=== PATIENT | female | born 1975 | race Caucasian/White ===

== ENCOUNTER 2018-08-21 13:55 | Emergency (ER) | payer SELFPAY ==
[2018-08-21 13:55] VITALS: BP 131/72; PULSE 96; RESP 16; TEMP 36.4; O2SAT 100; BMI 30.3
[2018-08-21 14:14] VITALS: TEMP 36.4; O2SAT 96
--- NOTE | 2018-08-21 14:34 | CT_ITS ---
STUDY: CTA CHEST REASON FOR EXAM: Female, 42 years old. Short of breath 4 weeks RADIATION DOSAGE (If Supplied By Facility): CTDIvol = ( 16.71 ) mGy, DLP = ( 386.07 ) mGycm TECHNIQUE: The examination was performed with the intravenous administration of 100 IV Isovue 370. Post-processing of the angiographic images was performed, with multiplanar reformation and 3D reconstruction. Individualized dose optimization techniques were used for this CT. COMPARISON: None. FINDINGS: Normal enhancement of the main pulmonary artery and right and left pulmonary arteries. Normal enhancement of the bilateral peripheral pulmonary arteries. There is no demonstrated pulmonary embolism. Normal thoracic aorta and visualized great vessels. There is no demonstrated aortic dissection. Normal heart and pericardium. Normal mediastinum. Normal hilar regions. Normal visualized trachea and bronchi. The lungs are well expanded. There is minimal atelectasis within the dependent portion of the lungs. There is mild scarring in the lower lobes. No focal infiltration or pulmonary nodules.. Normal pleura. Normal chest wall structures. Dorsal spine demonstrates mild spondylosis Normal visualized upper abdomen. CT/CTA Chest W/WO Contrast IMPRESSION: Minor interstitial thickening at the lung bases and atelectasis within the dependent portion of the lungs.. No acute infiltration. No evidence for pulmonary embolus Electronically Signed: Geremias Yu MD at 16:25 EDT , Service support ,
[2018-08-21 15:19] LABS: Anion Gap 7 (5-15); BUN 10 mg/dL (7-18); BUN/Creat Ratio 17.1 RATIO (10-20); Calcium,Total 8.1 mg/dL (8.5-10.1); Chloride 108 mmol/L (98-107); Creatinine, Serum 0.58 mg/dL (0.55-1.02); EST Glomerular Filtration Rate 119 mL/min (>60); Est Glom Filt Rate - Afr Amer 144 mL/min (>60); Estimated Creatinine Clearance 121.62 ml/min; Glucose 88 mg/dL (74-106); Potassium 3.5 mmol/L (3.5-5.1); Sodium Level 139 mmol/L (136-145)
--- NOTE | 2018-08-21 15:29 | ED.VISSUMM ---
- ER Visit Summary Date of Service: 08/21/18 Chief Complaint: Shortness of breath History of Present Illness: The patient is a 42 F who is G3, P1 Ab1 at 29 weeks. She states for the past couple weeks she has had worsening shortness of breath. She notes dyspnea on exertion and increasing heart rate was stairclimbing. She went to her OB doctor today who was concerned about pulmonary embolism and sent her to the emergency department. She denies any vaginal bleeding or leakage of fluid. She is been feeling baby move. No fevers or cough. No prior DVT or PE. No known clotting disorders. Physical Examination: Afebrile vital signs are stable heart rate 93 at rest pulse ox 98% on room air with good waveform Gen: Well-nourished well-developed Head: Normocephalic atraumatic Eyes: Perrl EOMI ENT: TMs clear no rhinorrhea moist mucous membranes Neck: Supple no lymphadenopathy no JVD nontender CVS: Regular rate rhythm no murmurs normal S1-S2 Respiratory: No distress clear to auscultation bilaterally chest nontender Abdomen: Soft nontender nondistended normal bowel sounds enlarged uterus consistent with dates Back: Nontender Extremity: Nontender no edema Skin: Normal color no rash Neuro: alert orientated ?3 CN II-XII intact normal strength sensation reflexes Psych: Normal affect normal mood Test Results: BMP was obtained which was normal. CTA of the chest was obtained. This was negative for PE and dissection. No pleural effusions noted. No evidence of CHF. Emergency Department Course and Treatment: Patient has been hemodynamically. I suspect the dyspnea secondary to the . Encourage her to have fluids. I spoke with Dr. Champion who is on-call for NUCLEAR SECURITY OFFICER and notify her of the results. Impression: 1. Third trimester 2. Dyspnea This note was generated with [employer] dictation software. It may contain incorrect words, spelling, and punctuation that were not noted in review of the chart prior to signing ED Disposition - Plan for ED Patient: Disposition: Home or Assisted Living Instructions: Adapting to : Third Trimester Referrals: Macy Wetzel DO [Primary Care Provider] - Keep Hilary appointment Additional Instructions: Drink plenty fluids to stay hydrated. Rest when able.
[2018-08-21 17:07] VITALS: BP 109/74; PULSE 86; RESP 19; O2SAT 96
== END 2018-08-21 17:14 | disposition home or self-care (01) ==
PROVIDERS: Emergency Provider Emergency Medicine; Family Provider Obstetrics & Gynecology; PCP Obstetrics & Gynecology
DX: O26.893 Other specified pregnancy related conditions, third trimester (principal); R06.02 Shortness of breath; Z3A.29 29 weeks gestation of pregnancy
CPT/HCPCS: 71275; 80048; 99283; Q9967

== ENCOUNTER 2018-10-30 14:05 | Inpatient (IN) | payer SELFPAY ==
[2018-10-30] VITALS (12 sets, daily range): BP systolic 96–132; BP diastolic 60–85; PULSE 66–77; RESP 16–18; TEMP 36.1–36.8; O2SAT 97–100; BMI 31.4
[2018-10-30] MEDS: Lactated Ringers 1,000 ML 999 ML IV (15:10)
[2018-10-30 15:33] LABS: Absolute Lymphocyte Count 2.02 X10^3/uL (0.83-4.51); Absolute Neutrophil Count 6.7 X10^3/uL (2.0-7.7); Basophil# 0.02 X10^3/uL; Basophil% 0.2 % (0-1); Eosinophil# 0.05 X10^3/uL; Eosinophils% 0.5 % (0-5); Hematocrit 35.4 % (37-47); Hemoglobin 11.6 g/dL (12.0-15.0); Lymphocyte # 2.02 X10^3/ul (4.0); Lymphocyte % 21.4 % (19-41); Mean Corp Hgb Conc 32.8 g/dL (32-36); Mean Corpuscular Volume 91.5 fL (81-99); Mean Platelet Vol. 10.5 fl (6.2-12.0); Monocyte# 0.61 X10^3/uL; Monocyte% 6.5 % (0-10); NRBC Flagged by Analyzer 0 % (0-5); Neutrophil # 6.67 X10^3/uL (2.7-7.7); Neutrophil % 70.7 % (47-70); Platelet Count 134 K/mm3 (150-450); RBC Distribution Width CV 13.9 % (11.6-14.6); RBC Distribution Width SD 45.8 fl (35.1-43.9); Red Blood Count 3.87 M/mm3 (4.2-5.4); White Blood Count 9.4 K/mm3 (4.4-11.0)
--- NOTE | 2018-10-30 16:16 | HP.PCM_ITS ---
History and Physical Date of Admission: 10/30/18 Pre-Op History and Physical ? HPI: The patient is a 43 year old female presenting for pre-operative visit. She is scheduled for? and?bilateral salpingectomy, for?39 weeks , previous c/s, advanced maternal age, unfavorable cervix, AFV of 6.3 cm and sterilization request on?October 30, 2018. ??Procedure discussed along with risks, benefits and complications. ?Other alternatives discussed for management. Consent form signed??Yes.? PAST?MEDICAL?HISTORY PAST MEDICAL HISTORY Diagnosis Date ? Orthostatic proteinuria ? ? ? PAST?SURGICAL?HISTORY PAST SURGICAL HISTORY Procedure Laterality Date ? DELIVERY ONLY ? 01/2017 ? , low transverse ? ? CURRENT?MEDICATIONS Current Outpatient Medications Medication Sig Dispense Refill ? ferrous sulfate (IRON ORAL) Take by mouth. ? ? ? BABY ASPIRIN ORAL Take by mouth. ? ? ? no122/iron/folic acid ( MULTI ORAL) Take by mouth. ? ? ? citalopram (CELEXA) 20 mg tablet Take 20 mg by mouth once daily. ? ? ? levothyroxine (SYNTHROID) 50 mcg tablet Take 50 mcg by mouth daily before breakfast. ? ? ? No current facility-administered medications for this visit.? ? ALLERGIES:?Tetracycline ? PERSONAL HISTORY:? SOCIAL?HISTORY Social History ??Socioeconomic History ?Marital status: ?Spouse name: Abundio ?Number of children: 3 ?Years of education: Not on file ?Highest education level: Not on file ??Occupational History ?Occupation: Homemaker ??Social Needs ?Financial resource strain: Not on file ?Food insecurity: ?Worry: Not on file ?Inability: Not on file ?Transportation needs: ?Medical: Not on file ?Non-medical: Not on file ??Tobacco Use ?Smoking status: Never Smoker ?Smokeless tobacco: Never Used ??Substance and Sexual Activity ?Alcohol use: No ?Drug use: No ?Sexual activity: Yes ?Partners: Male ??Lifestyle ?Physical activity: ?Days per week: Not on file ?Minutes per session: Not on file ?Stress: Not on file ??Relationships ?Social connections: ?Talks on phone: Not on file ?Gets together: Not on file ?Attends confucianist service: Not on file ?Active member of club or organization: Not on file ?Attends meetings of clubs or organizations: Not on file ?Relationship status: Not on file ?Intimate partner violence: ?Fear of current or ex partner: Not on file ?Emotionally abused: Not on file ?Physically abused: Not on file ?Forced sexual activity: Not on file ??Other Topics ?Concerns: ?Not on file ??Social History Narrative ?Not on file ? FAMILY HISTORY:? FAMILY?HISTORY FAMILY HISTORY Problem Relation Age of Onset ? Breast Cancer Mother 53 ? Thyroid Mother ?Hypothyroid ? Diabetes Father ?Pre Diabetic ? Hyperlipidemia Sister ? ? Hypertension Sister ? ? Hypertension Brother ? ? Cancer Paternal Grandfather ?Leukemia ? REVIEW OF SYMPTOMS: GENERAL: denies fevers or chills ENDOCRINOLOGY: has not been on steroids Cardiology : denies palpitations or chest pain Respiratory: denies SOB or cough Hematology: denies history of prolonged bleeding or easy bruising or VTE Allergy: Denies history of personal or family history of allergy to anesthesia ? ? PHYSICAL EXAMINATION: ? VITALS:?Blood pressure 124/80, weight 201 lb (91.2 kg), last menstrual period 01/30/2018, not currently . ? GENERAL:??The patient is well nourished, well hydrated in no acute distress. ?, The patient is oriented to time, place, and person. NECK:?Supple. No lynphadenopathy, normal thyroid, no thyromegaly. LUNGS:?Clear to auscultation bilaterally. no wheezes, rhonchi or rales HEART:?Regular rate and rhythm, Normal heart sounds and No murmurs or gallops ABD- Soft, nontender, gravid ? IMPRESSION:?43-year-old 3 para 1011 at 39-0/7 weeks gestation with unfavorable cervix, history of previous section, amniotic fluid volume of 6.3 cm, and sterilization request ? PLAN:???The risks/benefits/alternatives and personal involved for the planned?c- section and?bilateral salpingectomy?were reviewed with the patient. Her questions were answered to her satisfaction and she desires to proceed. ?Consent was signed. ?I reviewed with her postop instructions and expectations. ?.[email or web address] ? ? ? I have reviewed and updated past medical and surgical history, medications and allergies? Maddy Champion M.D.
[2018-10-30] MEDS: Lactated Ringers 1,000 ML 150 ML IV (16:25)
[2018-10-30] MEDS: Sodium Citrate/Citric Acid 30 ML UDC PO (16:27)
[2018-10-30] MEDS: Cefazolin 2 GM in 0.9% Normal Saline 100 ML IV (17:06)
[2018-10-30] MEDS: Ondansetron 4 MG/2 ML Vial IV ×2 (17:17→21:41)
--- NOTE | 2018-10-30 18:00 | FALS_PTH ---
PATIENT: YURI HIGGINS LOC: [facility] U#:[id number] AGE/SX: 43/F ROOM: WP007 RE10/30/[address]: Dr. Maddy Champion MD : 1975 BED: 1 DIS: 11/01/2018 SPEC #: [id number] RECD: 10/30/18 20:04 STATUS: CHAVEZ REEmily #: [id number] KIMBERLY: 10/30/18 18:[address]: Maddy Champion DEPT: SURGICAL PATHOLOGY RECD BY: Velasquez Miranda ENTERED: 11/02/18 12:08 SP TYPE: FALL TUBES OTHR DR: Dr. Macy Wetzel, DO Tissues: Fallopian tube Procedures: Surgery Specimen Level II HEADER OPERATION: Tubal ligation PRE-OP DIAGNOSIS: Sterilization TISSUE SUBMITTED: Bilateral fallopian tubes MICROSCOPIC DIAGNOSIS Bilateral fallopian tubes, salpingectomy: Bilateral fallopian tubes with diffuse congestion and focal decidual changes. ADELINA:jazmin 11/03/18 MICROSCOPIC DESCRIPTION Slides are reviewed. GROSS DESCRIPTION Received is one container labeled with the patient's name and designated bilateral fallopian tubes. The specimen consists of bilateral fallopian tubes including fimbrial ends measuring 8 cm in length and up to 1 cm in diameter and 7 cm in length and up to 1 cm in diameter. The fallopian tubes are not identified as right or left. The serosal surface is congested. Sections reveal congested cut surfaces without any mass lesion. Vessel Scrapper Helper sections are submitted in two cassettes with each cassette containing one fallopian tube. / ADELINA:jazmin 11/02/18 TC:5 CPT: 03667 x2
--- NOTE | 2018-10-30 18:27 | PCM.OPRPT ---
Report of Operation Date of Procedure: 10/30/18 Pre-Operative Diagnosis: 39 WEEK , PREVIOUS C/S, STERILIZATION REQUET Post-Operative Diagnosis: same Surgery/Procedure Performed:: Repeat low transverse section via Pfannenstiel skin incision with bilateral salpingectomy Description of Surgical Findings:: Normal-appearing uterus tubes and ovaries, vigorous male , vertex, light meconium-stained fluid fountain pen turner: Marky Hedrick Type of Anesthesia:: Spinal Anesthesiologist: Ramon Alonso Special Medications: none Specimen's removed: placenta, bilateral tubes Drains: hnaey Estimated Blood Loss (mL): 1000 Description of Procedure: The patient was taken to the operating room. She was prepped and draped in the dorsal supine position with a leftward tilt. A Pfannenstiel skin incision was made approximately 2 cm above the symphysis pubis and carried through to underlying layer fascia with the scalpel. The fascia was incised incised in the midline and extended laterally with the Pelaez scissors. The fascia was dissected off the rectus muscles with blunt and sharp dissection. The rectus muscles were in the midline and the peritoneum was entered bluntly. The peritoneal incision was stretched and the bladder blade was placed. The uterine incision was made in a low transverse fashion with the scalpel and extended superiorly and inferiorly with blunt dissection. The amniotic membranes were ruptured bluntly and small amount of light meconium-stained amniotic fluid returned. The 's head was brought to the incision in the flexed position and delivered without difficulty. The remainder of the was delivered with gentle traction and fundal pressure in the standard fashion. The cord was clamped and cut as the was stimulated. Cord clamping was delayed. The was handed off to the waiting nursing staff. The placenta was delivered with fundal massage and gentle traction in the standard fashion. The uterus was exteriorized and cleared of all clots and debris. The cervix was dilated with a ring forcep. The uterine incision was closed with #1 Vicryl in a running locked fashion. A second layer of the same suture was used in an imbricating fashion. There is still some significant bleeding from a sinus along the right side of the incision. Several [id number] 0 Vicryl sutures were needed in this area to obtain hemostasis. Some powdered Surgicel was placed and pressure was held in the area was noted to be hemostatic. The right fallopian tube was identified and followed out to fimbriated end. The LigaSure was used to clamp, seal and transect the antimesenteric portion of the tube. The tube was then transected from the uterus with the LigaSure. Hemostasis was noted. The same procedure was performed on the contralateral side. The incision was examined and was found to be hemostatic. The uterus was placed back into the peritoneal cavity and hemostasis was again confirmed. The rectus muscles were examined and any bleeding was Bovie cauterized. The parietal peritoneum and rectus muscles were closed en bloc with an 0 Vicryl running suture. The powder Surgicel was placed in each layer. The rectus fascia was examined and any bleeding was Bovie cauterized and the rectus fascia was closed with #1 PDS suture in a running standard fashion. The subcutaneous tissue was examining and any bleeding was Bovie cauterized. The subcutaneous tissue was reapproximated with 3-0 Vicryl suture. The skin was closed in a subcuticular fashion by the JIG BORE OPERATOR with me present in the labor and delivery suite. I performed the remainder of the procedure with assistance. All sponge, lap, and needle counts were correct. The patient was taken to her room for recovery in a stable condition. Grafts/Implants Used: none - Complications none - Admit VTE Documentation VTE Present on Admission: No VTE Mechan Device Prophylaxis: SCD's VTE Pharm Prophylaxis ordered?: Yes
[2018-10-30] MEDS: Oxytocin 30 units/NS 500 ml 30 UNITS/500 ML IV.SOLN 167 UNITS IV (19:00)
--- NOTE | 2018-10-30 19:50 | NURSING ---
Dr. Champion used the Ligasure device for tubal ligation.
[2018-10-30 20:05] LABS: Pathology Specimen OB SEE PATHOLOGY REPORT
[2018-10-30] MEDS: Lactated Ringers 1,000 ML 100 ML IV (21:57)
[2018-10-31] VITALS (13 sets, daily range): BP systolic 95–123; BP diastolic 58–70; PULSE 69–88; RESP 16–17; TEMP 36.1–37.2; O2SAT 97–100
[2018-10-31] MEDS: Ketorolac 30 MG/ML Syringe IV ×2 (00:39→06:05)
[2018-10-31 06:34] LABS: Hematocrit 32.8 % (37-47); Hemoglobin 10.6 g/dL (12.0-15.0); Mean Corp Hgb Conc 32.3 g/dL (32-36); Mean Corpuscular Hgb 29.8 pg (27.0-32.0); Mean Corpuscular Volume 92.1 fL (81-99); Mean Platelet Vol. 10.4 fl (6.2-12.0); Platelet Count 124 K/mm3 (150-450); RBC Distribution Width CV 13.9 % (11.6-14.6); Red Blood Count 3.56 M/mm3 (4.2-5.4)
--- NOTE | 2018-10-31 09:47 | PCM.PN.OB ---
Subjective: Pain well controlled, average lochia. Up and ambulating. Catheter was just removed so has not urinated yet. No nausea or vomiting. - Physical Exam General: Alert, Cooperative, No apparent distress Abdomen: Soft, Distended - Moderately, softly, Tender - Appropriately, - - Fundus firm Extremities: Edema - 1+ Skin: Incision - Bandage is clean dry and intact Vital Signs Temp Pulse Resp BP Pulse Ox 98.0 F 78 17 95/60 99 10/31/18 08:00 10/31/18 08:00 10/31/18 08:00 10/31/18 08:00 10/31/18 08:00 Oxygen Delivery Method Room Air Weight: 91.081 kg Body Mass Index (BMI) 31.4 Intake and Output for Last 24 Hours 10/29/18 10/30/18 10/31/18 23:59 23:59 23:59 Intake Total 2367.65 / 2367.65 1486.67 / 1486.67 Output Total 525 / 525 700 / 700 Balance 1842.65 / 1842.65 786.67 / 786.67 Laboratory Tests Past 24 Hrs 10/30/18 10/30/18 10/31/18 15:10 15:10 06:12 WBC 9.4 9.0 RBC 3.87 L 3.56 L Hgb 11.6 L 10.6 L Hct 35.4 L 32.8 L MCV 91.5 92.1 MCH 30.0 29.8 MCHC 32.8 32.3 RDW Std Deviation 45.8 H 47.0 H RDW Coeff of Ad 13.9 13.9 Plt Count 134 L 124 L MPV 10.5 10.4 Immature Gran % (Auto) 0.700 Neut % (Auto) 70.7 H Lymph % (Auto) 21.4 Overton % (Auto) 6.5 Eos % (Auto) 0.5 Baso % (Auto) 0.2 Absolute Neuts (auto) 6.7 Absolute Lymphs (auto) 2.02 Nucleated RBC % 0 Blood Type A POSITIVE Antibody Screen NEGATIVE Medical Necessity - Tobacco Use Smoking Status: Never smoker Assessment/Plan Postoperative day #1 status post repeat and bilateral salpingectomy for sterilization. Patient is doing well, hemoglobin is appropriate for postop blood loss. Patient is working on breast-feeding. Routine care.
[2018-10-31] MEDS: Citalopram 20 MG Tablet PO (11:11)
[2018-10-31] MEDS: Docusate Sodium 100 MG Capsule PO (11:11)
[2018-10-31] MEDS: Senna/Docusate Sodium 1 Tablet PO ×2 (11:11→20:52)
[2018-10-31] MEDS: Prenatal Vits Tablet 1 TABLET PO (12:30)
[2018-10-31] MEDS: Ketorolac 10 MG Tablet PO ×2 (12:55→20:52)
[2018-10-31] MEDS: Levothyroxine 50 MCG Tablet PO (18:16)
[2018-10-31] MEDS: oxyCODONE 5 MG Tablet PO ×2 (18:46→23:38)
[2018-11-01 01:18] VITALS: BP 109/63; PULSE 86; RESP 16; TEMP 37
[2018-11-01] MEDS: Ketorolac 10 MG Tablet PO ×2 (04:54→13:41)
[2018-11-01] MEDS: Levothyroxine 50 MCG Tablet PO (06:29)
[2018-11-01] MEDS: oxyCODONE 5 MG Tablet PO (06:44)
[2018-11-01 08:00] VITALS: BP 99/51; PULSE 77; RESP 16; TEMP 36.7
--- NOTE | 2018-11-01 09:34 | PCM.PN.OB ---
Subjective: Pain controlled, average lochia. Tolerating regular diet, ambulating and urinating without difficulty. - Physical Exam General: Alert, Cooperative, No apparent distress Abdomen: Soft, Distended - Mildly, softly, Tender - Appropriately Skin: Incision - The bandage is clean dry and intact Vital Signs Temp Pulse Resp BP Pulse Ox 98.1 F 77 16 99/51 L 100 11/01/18 08:00 11/01/18 08:00 11/01/18 08:00 11/01/18 08:00 10/31/18 18:00 Oxygen Delivery Method Room Air Weight: 91.081 kg Body Mass Index (BMI) 31.4 Intake and Output for Last 24 Hours 10/30/18 10/31/18 11/01/18 23:59 23:59 23:59 Intake Total 2367.65 / 2367.65 1586.67 / 1586.67 Output Total 525 / 525 1650 / 1650 Balance 1842.65 / 1842.65 -63.33 / -63.33 Medical Necessity - Tobacco Use Smoking Status: Never smoker Assessment/Plan Postoperative day #2 status post repeat section bilateral salpingectomy for sterilization Patient is doing well, is breast-feeding and doing well. Likely home later today. Routine prescriptions and instructions.
[2018-11-01 09:41] VITALS: BP 113/71; PULSE 74; RESP 16; TEMP 36.7
--- NOTE | 2018-11-01 09:41 | DCINST_ITS ---
Discharge Diet: No Restrictions Discharge Activity: Return to Normal Activity, May Not Drive - for 2 weeks, May not drive while taking narcotic pain medications., May Shower, May Take a Tub Bath - in 7 days. May resume sexual activity in: 4-6 weeks Lifting Restrictions: 20 pounds Additional Activity Instructions:: Nothing in the vagina for 4-6 weeks. You may return to work/school in 6 weeks. Call your doctor if your incision/area has: Continuous Slow Oozing, Sudden Increased Bleeding, Increased Pain/ Swelling, Increased Redness, Foul Smelling Discharge Call your doctor if you observe: Fever of 101 or Higher, Using more than one pad per hour - for 2 hours Suture Line Care: Avoid Pulling/Pushing, Avoid Pinching/Bending Cleanse incision/area with: Keep Dressing Clean & Dry Additional Instructions: If you experience any of the following, contact your healthcare provider. * Bleeding that soaks a pad every hour for 2 hours * Fever 100.4 or higher * Unrelieved incision or abdominal pain * Swelling, redness, discharge or bleeding from your incision or episiotomy site * Your incision begins to separate * Problems urinating (including inability to urinate or burning while urinating). * Visual changes * Severe headache * Flu-like symptoms * Pain or redness in one of both of your breasts * Pain, warmth, tenderness or swelling in your legs, especially the calf area * Frequent nausea and vomiting * Symptoms of depression or anxiety If you experience any of the following, call 911 or go to the nearest Emergency Room. * Chest pain * Problems breathing * Seizure activity * Partial or complete paralysis of a body part, slurred speech, weakness or drooping of the face, or a sudden inability to walk or hold your balance Allergies/Adverse Reactions: Allergies tetracycline Adverse Reaction (Verified 08/21/18 13:57) Rash Medications to take at Discharge Citalopram [Celexa] 20 mg PO DAILY 01/14/17 Ferrous Gluconate [Iron] 650 mg PO DAILY 01/14/17 Vit,Calc76/Iron/Folic [Pnv 29-1 Tablet] 1 each PO DAILY 01/14/17 Citalopram [Celexa] 20 mg PO DAILY #30 tab 11/01/18 Levothyroxine Sodium 50 mcg PO DAILY@0600 #30 tab 11/01/18 Oxycodone [Oxyir] 5 mg PO Q6H PRN PRN 5 Days #12 tablet 11/01/18 The following prescriptions were given: Citalopram [Celexa] 20 mg PO DAILY #30 tab Transmission Status: Pending to [facility] Levothyroxine Sodium 50 mcg PO DAILY@0600 #30 tab Transmission Status: Pending to [facility] Oxycodone [Oxyir] 5 mg PO Q6H PRN PRN 5 Days #12 tablet PRN Reason: Severe Pain (6-11/19) Transmission Status: Sent to [facility] Follow-Up: Call to make an appointment with your doctor for an incision check in 1-2 weeks. You will also need a 6 week post- follow up appointment. Test results from this visit will be discussed in further detail at your follow- up appointment, if applicable. Please Follow Up With: Maddy Champion MD - Call to make an appointment for an incision check in 1-2 [phone] When: You will need a post check in 6 weeks.
--- NOTE | 2018-11-01 09:42 | PCM.DC.SUM ---
Discharge Date and Diagnosis Date of Admission: 10/30/18 Date of Discharge: 11/01/18 Hospital Course and Treatment Operations: - - Repeat low transverse section via Pfannenstiel skin incision with bilateral salpingectomy Summary of Care Provided: The patient is a 43 year old multigravida female with history of previous section was admitted at 39 weeks gestation for repeat section. She was diagnosed with low amniotic fluid, volume 6.3 cm, unfavorable cervix at term, advanced maternal age. Risk benefits and alternatives to repeat section versus expectant management were reviewed with the patient she desired to proceed with the section. In addition, she desired to proceed with bilateral salpingectomy and she understood this is permanent, irreversible risk of failure and regret. The section and bilateral salpingectomy were performed without difficulty on 10/30/2018. By postoperative day #2 she was ambulating, urinating tolerating regular diet and oral pain medication without difficulty. She was discharged home with routine instructions, she is to continue her home medications. She is to follow-up in the office in 1-2 in 6 weeks or as needed. [] - Physical Exam Vital Signs Temp Pulse Resp BP Pulse Ox 98.1 F 77 16 99/51 L 100 11/01/18 08:00 11/01/18 08:00 11/01/18 08:00 11/01/18 08:00 10/31/18 18:00 Oxygen Delivery Method Room Air Weight: 91.081 kg Body Mass Index (BMI) 31.4 Intake and Output for Last 24 Hours 10/30/18 10/31/18 11/01/18 23:59 23:59 23:59 Intake Total 2367.65 / 2367.65 1586.67 / 1586.67 Output Total 525 / 525 1650 / 1650 Balance 1842.65 / 1842.65 -63.33 / -63.33 Discharge Diet: No Restrictions Discharge Activity: Return to Normal Activity, May Not Drive - for 2 weeks, May not drive while taking narcotic pain medications., May Shower, May Take a Tub Bath - in 7 days. May resume sexual activity in: 4-6 weeks Additional Activity Instructions:: Nothing in the vagina for 4-6 weeks. You may return to work/school in 6 weeks. Call your doctor if your incision/area has: Continuous Slow Oozing, Sudden Increased Bleeding, Increased Pain/ Swelling, Increased Redness, Foul Smelling Discharge Call your doctor if you observe: Fever of 101 or Higher, Using more than one pad per hour - for 2 hours Suture Line Care: Avoid Pulling/Pushing, Avoid Pinching/Bending Cleanse incision/area with: Keep Dressing Clean & Dry Home Medications: Medications to take at Discharge Citalopram [Celexa] 20 mg PO DAILY 01/14/17 Ferrous Gluconate [Iron] 650 mg PO DAILY 01/14/17 Vit,Calc76/Iron/Folic [Pnv 29-1 Tablet] 1 each PO DAILY 01/14/17 Citalopram [Celexa] 20 mg PO DAILY #30 tab 11/01/18 Levothyroxine Sodium 50 mcg PO DAILY@0600 #30 tab 11/01/18 Oxycodone [Oxyir] 5 mg PO Q6H PRN PRN 5 Days #12 tablet 11/01/18 Following Prescrptions Were Given to Patient: Citalopram [Celexa] 20 mg PO DAILY #30 tab [facility] Levothyroxine Sodium 50 mcg PO DAILY@0600 #30 tab Transmission Status: [facility] Oxycodone [Oxyir] 5 mg PO Q6H PRN PRN 5 Days #12 tablet PRN Reason: Severe Pain (6-11/19) Transmission Status[facility] Primary Care Physician: Macy Wetzel DO [Primary Care Provider] - Please Follow Up With: Maddy Champion MD - Call to make an appointment for an incision check in 1-2 [phone] When: You will need a post check in 6 weeks. Medical Necessity - Tobacco Use Smoking Status: Never smoker Meaningful Use Info Meaningful Use Diagnoses (Choose all that apply): None applicable
[2018-11-01] MEDS: Senna/Docusate Sodium 1 Tablet PO ×3 (11:01)
[2018-11-01] MEDS: Prenatal Vits Tablet 1 TABLET PO (11:01)
[2018-11-01] MEDS: Citalopram 20 MG Tablet PO (11:01)
== END 2018-11-01 14:05 | disposition home or self-care (01) | DRG 785 ==
PROVIDERS: Admitting Provider Obstetrics & Gynecology; Family Provider Obstetrics & Gynecology; PCP Obstetrics & Gynecology; Referring Provider Obstetrics & Gynecology; Visit Provider Obstetrics & Gynecology
PROC: 10D00Z1 Extraction of Products of Conception, Low, Open Approach (ICD-10-PCS; CPT 59514; principal; 2018-10-30 16:15)
DX: O34.211 Maternal care for low transverse scar from previous cesarean delivery (principal); O77.0 Labor and delivery complicated by meconium in amniotic fluid; Z30.2 Encounter for sterilization; O99.284 Endocrine, nutritional and metabolic diseases complicating childbirth; E03.9 Hypothyroidism, unspecified; O99.344 Other mental disorders complicating childbirth; F32.9 Major depressive disorder, single episode, unspecified; Z79.899 Other long term (current) drug therapy; Z3A.39 39 weeks gestation of pregnancy; Z37.0 Single live birth
CPT/HCPCS: 85025; 85027; 86850; 86900; 86901; 88302; 99218; J7120; G0378; J2405

== ENCOUNTER → 2018-12-08 16:45 | Outpatient (CLI) | payer MEDICAID, SELFPAY ==
[2018-10-30 15:35] VITALS: BMI 31.4
[2018-12-08 17:14] LABS: Protein, Urine (Random) 36.5 mg/dL (<11.9); Protein:Creat Ratio 551 mg/g CRE (0-200)
[2018-12-08 17:23] LABS: Albumin, Serum 3.4 g/dL (3.2-5.0); BUN 15 mg/dL (7-18); BUN/Creat Ratio 16.5 RATIO (10-20); Calcium,Total 8.3 mg/dL (8.5-10.1); Chloride 107 mmol/L (98-107); Creatinine, Serum 0.91 mg/dL (0.55-1.02); EST Glomerular Filtration Rate 71 mL/min (>60); Est Glom Filt Rate - Afr Amer 86 mL/min (>60); Glucose 79 mg/dL (74-106); Phosphorus 3.5 mg/dL (2.5-4.9); Potassium 3.9 mmol/L (3.5-5.1); Sodium Level 140 mmol/L (136-145)
== END ==
PROVIDERS: Family Provider Obstetrics & Gynecology; PCP Obstetrics & Gynecology; Referring Provider Internal Medicine Nephrology; Visit Provider Internal Medicine Nephrology
DX: R80.9 Proteinuria, unspecified (principal)
CPT/HCPCS: 36415; 80069; 82570; 84156

== ENCOUNTER → 2020-03-09 11:26 | Outpatient (CLI) | payer SELFPAY ==
[2018-10-30 15:35] VITALS: BMI 31.4
--- NOTE | 2020-03-09 11:30 | US_ITS ---
STUDY: ULTRASOUND OF THE FEMALE PELVIS - COMPLETE REASON FOR EXAM: Female, 44 years old. Pelvic pain LMP: 02/17/2020 TECHNIQUE: Transabdominal and Transvaginal TECHNICAL QUALITY: Adequate. COMPARISON: None. FINDINGS: The uterus is anteverted and is in a midline position. The uterus measures 8.8 cm x 5.7 cm x 4.9 cm. There is a Nabothian cyst of the cervix. The endometrium measures 7.9 mm in thickness, and is hyperechoic. There is no demonstrated endometrial mass. Heterogeneous appearance of the uterus. I.U.D. - The patient does not have an I.U.D. The right ovary is visualized. The right ovary measures 3.2 cm x 1.6 cm x 1.5 cm. There is no right ovarian cyst or ovarian mass. There is no visualized right adnexal mass or complex lesion. There is normal arterial and normal venous vascularity. The left ovary is visualized. The left ovary measures 4.3 cm x 2.2 cm x 2.6 cm. 2.2 cm x 2 cm x 1.8 cm cyst in the left ovary. There is no visualized left adnexal mass or complex lesion. There is normal arterial and normal venous vascularity. There is no fluid in the cul-de-sac. The pre void volume of the bladder was 952 ml. Polycystic ovary disease: No. US/Pelvic (Non ) IMPRESSION: 2.2 cm x 2 cm x 1.8 cm cyst in the left ovary. Heterogeneous appearance of the myometrium. Electronically Signed: Leo Posada MD at 13:33 EST , Service support ,
--- NOTE | 2020-03-09 11:31 | US_ITS ---
STUDY: ULTRASOUND OF THE FEMALE PELVIS - COMPLETE REASON FOR EXAM: Female, 44 years old. Pelvic pain LMP: 02/17/2020 TECHNIQUE: Transabdominal and Transvaginal TECHNICAL QUALITY: Adequate. COMPARISON: None. FINDINGS: The uterus is anteverted and is in a midline position. The uterus measures 8.8 cm x 5.7 cm x 4.9 cm. There is a Nabothian cyst of the cervix. The endometrium measures 7.9 mm in thickness, and is hyperechoic. There is no demonstrated endometrial mass. Heterogeneous appearance of the uterus. I.U.D. - The patient does not have an I.U.D. The right ovary is visualized. The right ovary measures 3.2 cm x 1.6 cm x 1.5 cm. There is no right ovarian cyst or ovarian mass. There is no visualized right adnexal mass or complex lesion. There is normal arterial and normal venous vascularity. The left ovary is visualized. The left ovary measures 4.3 cm x 2.2 cm x 2.6 cm. 2.2 cm x 2 cm x 1.8 cm cyst in the left ovary. There is no visualized left adnexal mass or complex lesion. There is normal arterial and normal venous vascularity. There is no fluid in the cul-de-sac. The pre void volume of the bladder was 952 ml. Polycystic ovary disease: No. US/Transvaginal Non- IMPRESSION: 2.2 cm x 2 cm x 1.8 cm cyst in the left ovary. Heterogeneous appearance of the myometrium. Electronically Signed: Leo Posada MD at 13:33 EST , Service support ,
== END ==
PROVIDERS: PCP Physician Assistant; Referring Provider Physician Assistant; Visit Provider Physician Assistant
DX: R19.01 Right upper quadrant abdominal swelling, mass and lump (principal)
CPT/HCPCS: 76830; 76856

== ENCOUNTER → 2021-10-18 | Outpatient (CLI) | payer SELFPAY ==
--- NOTE | 2021-10-18 10:15 | BI_ITS ---
MAMMOGRAPHY - BILATERAL SCREENING REASON FOR EXAM: Female, 46 years old. Routine annual screening examination. PERTINENT HISTORY: Mother with breast cancer. TECHNIQUE: Digital bilateral breast delmi (3D mammographic acquisition) in the CC and MLO projections. 2-D mediolateral oblique (MLO) and craniocaudad (CC) views of both breasts were obtained. CAD: Full Field Digital Mammography with Computer Added Detection was performed. COMPARISON: Comparison is made with prior abdomen examination of 03/23/2019. FINDINGS: Breast Composition: The breasts are heterogeneously dense, which may obscure small masses. Findings suggestive of a architectural distortion in the slightly upper lateral aspect of the left breast. The patient will be recalled for additional views including 90 degree lateral and compression spot views. Stable small benign-appearing bilateral axillary lymph nodes. No other significant abnormalities are identified. BI/SCRN MAMM (CAD)W/DELMI BILAT IMPRESSION: Findings suggestive of architectural distortion in the slightly upper lateral aspect of the left breast. The patient will be recalled for additional views. Recall Side: Left Breast ASSESSMENT CATEGORY: BIRADS Category 0: Incomplete. Need additional imaging evaluation. A letter regarding these results will be sent to the patient by the facility within 30 days. Approximately 10% of breast cancers are not detected by mammography. A normal mammogram should not delay biopsy of a clinically suspicious abnormality. [id number] Electronically Signed: Leo Posada MD at 11:01 EDT ,
== END | disposition home or self-care (01) ==
PROVIDERS: PCP Physician Assistant; Visit Provider Physician Assistant
DX: Z12.31 Encounter for screening mammogram for malignant neoplasm of breast (principal); Z80.3 Family history of malignant neoplasm of breast
CPT/HCPCS: 77063; 77067

== ENCOUNTER → 2021-10-23 | Outpatient (CLI) | payer SELFPAY ==
--- NOTE | 2021-10-23 08:59 | US_ITS ---
STUDY: ULTRASOUND BREAST - LEFT REASON FOR EXAM: Female, 46 years old. Abnormal screening mammogram. TECHNIQUE: Axial and longitudinal images of the LEFT breast were performed with a high resolution ultrasound transducer. # OF IMAGES: 41 COMPARISON: Comparison is made with prior mammogram done earlier in the day as well as prior mammogram dated 10/18/2021. FINDINGS: LEFT Breast: The upper outer quadrant of the breast was examined with ultrasound. Focal increased glandular tissue at the 3 o''clock position of the breast. No focal lesion is seen. US/Breast Limited Unilateral IMPRESSION: No significant abnormality is seen. Routine annual mammographic follow-up recommended. ASSESSMENT CATEGORY: BIRADS Category 2: Benign. A letter regarding these results will be sent to the patient by the facility within 30 days. Electronically Signed: Leo Posada MD at 10:25 EDT ,
--- NOTE | 2021-10-23 08:59 | BI_ITS ---
MAMMOGRAPHY - UNILATERAL DIAGNOSTIC: LEFT BREAST REASON FOR EXAM: Female, 46 years old. Abnormal screening mammogram. PERTINENT HISTORY: Mother with breast cancer. TECHNIQUE: Compression spot views in the mediolateral oblique and craniocaudal projection as well as a true 90 degree lateral view were obtained. CAD: Full Field Digital Mammography with Computer Added Detection was performed. COMPARISON: Comparison is made with prior mammogram dated 10/18/2021. FINDINGS: Breast Composition: The breasts are heterogeneously dense, which may obscure small masses. Persistent focal area of architectural distortion is seen on the mediolateral oblique view. Correlation with ultrasound will be obtained. No other significant abnormalities are identified. BI/DIAG MAMM W/CAD, UNILAT IMPRESSION: Persistent focal area of architectural distortion is seen on the mediolateral oblique view. An ultrasound correlation will be obtained. ASSESSMENT CATEGORY: BIRADS Category 0: Incomplete. Need additional imaging evaluation. A letter regarding these results will be sent to the patient by the facility within 30 days. Approximately 10% of breast cancers are not detected by mammography. A normal mammogram should not delay biopsy of a clinically suspicious abnormality. Electronically Signed: Leo Posada MD at 10:20 EDT ,
== END | disposition home or self-care (01) ==
PROVIDERS: PCP Physician Assistant; Referring Provider Physician Assistant; Visit Provider Physician Assistant
DX: N63.21 Unspecified lump in the left breast, upper outer quadrant (principal); R92.2 Inconclusive mammogram; Z80.3 Family history of malignant neoplasm of breast
CPT/HCPCS: 76642; 77065

== ENCOUNTER → 2023-05-19 | Outpatient (CLI) | payer SELFPAY ==
--- NOTE | 2023-05-19 | EMB_PTH ---
PATIENT: YURI HIGGINS LOC: [facility]#:[id number] AGE/SX: 47/F ROOM: RE05/19/[address]: CAMI Astorga : 1975 BED: DIS: 05/19/2023 SPEC #: [id number] RECD: 05/19/23 13:22 STATUS: CHAVEZ REEmily #: [id number] KIMBERLY: 05/19/23 00:[address]: Alyssa Barahona NP DEPT: SURGICAL PATHOLOGY RECD BY: Rony Corcoran ENTERED: 05/19/23 13:22 SP TYPE: ENDOM BX/C CHIP DR: Karthik Hidalgo PA-C Tissues: Endometrium, NOS Procedures: Surgery Specimen Level IV HEADER OPERATION: Endometrial biopsy PRE-OP DIAGNOSIS: Abnormal uterine bleeding TISSUE SUBMITTED: Endometrial lining MICROSCOPIC DIAGNOSIS Endometrial biopsy: Mildly disordered proliferative endometrium with focal glandular breakdown. SJ/mr 05/20/23 MICROSCOPIC DESCRIPTION Slides are reviewed. GROSS DESCRIPTION Received is one container labeled with the patient's name and not further designated. The specimen consists of multiple irregular fragments of red- davis soft tissue that in aggregate measure 5.0 x 4.0 x 0.2 cm. The specimen is totally submitted in two cassettes. AM/mr 05/19/23 TC:5 CPT: 68379
[2023-05-19 13:05] LABS: Absolute Lymphocyte Count 2.31 X10^3/uL (0.83-4.51); Absolute Neutrophil Count 3.1 X10^3/uL (2.0-7.7); Basophil# 0.02 X10^3/uL; Basophil% 0.3 % (0-1); Eosinophils% 1.7 % (0-5); Hemoglobin 8.2 g/dL (12.0-15.0); Lymphocyte # 2.31 X10^3/ul (0.83-4.51); Lymphocyte % 38.2 % (19-41); Mean Corp Hgb Conc 31.5 g/dL (32-36); Mean Corpuscular Hgb 26.5 pg (27.0-32.0); Mean Corpuscular Volume 83.9 fL (81-99); Mean Platelet Vol. 9.1 fl (6.2-12.0); Monocyte# 0.56 X10^3/uL; Monocyte% 9.3 % (0-10); NRBC Flagged by Analyzer 0 % (0-5); Neutrophil # 3.05 X10^3/uL (2.7-7.7); Neutrophil % 50.3 % (47-70); Platelet Count 265 K/mm3 (150-450); RBC Distribution Width CV 14.7 % (11.6-14.6); RBC Distribution Width SD 45.2 fl (35.1-43.9); White Blood Count 6.1 K/mm3 (4.4-11.0)
[2023-05-19 13:28] LABS: Thyroid Stim Hormone (TSH) 1.04 uIU/mL (0.358-3.74)
== END | disposition home or self-care (01) ==
PROVIDERS: PCP Physician Assistant; Referring Provider Nurse Practitioner Women's Health; Visit Provider Nurse Practitioner Women's Health
DX: Z13.29 Encounter for screening for other suspected endocrine disorder (principal); N93.9 Abnormal uterine and vaginal bleeding, unspecified; N92.1 Excessive and frequent menstruation with irregular cycle
CPT/HCPCS: 36415; 84443; 85025; 88305

== ENCOUNTER → 2023-05-28 | Outpatient (CLI) | payer SELFPAY ==
--- NOTE | 2023-05-28 12:53 | US_ITS ---
INDICATION: AUB -- heavy menses EXAMINATION: Ultrasound US Pelvis Non OB Complete With Transvaginal Imaging TECHNIQUE: Transabdominal and transvaginal pelvic ultrasound was performed. Grayscale, spectral waveform, and color flow Doppler evaluation of the adnexa. COMPARISON: Prior study dated: 03/09/2020 FINDINGS: UTERUS: Anteverted. The uterus measures 8.9 x 6.1 x 4 cm. The uterus appears heterogeneous. The endometrial stripe measures 8 mm in AP diameter which is within normal limits which is within normal limits for a premenopausal patient. Nabothian cyst is seen in the cervix. RIGHT OVARY: 1.9 x 1.7 x 1.3 cm. Non-enlarged, normal echogenicity. There is normal arterial inflow and venous outflow present in the right ovary. LEFT OVARY: 2.5 x 1.6 x 1.4 cm. Non-enlarged, normal echogenicity. There is normal arterial inflow and venous outflow present in the left ovary. FREE FLUID: None. US/Pelvic w/ Transvaginal IMPRESSION: 1. Heterogeneous uterus essentially unchanged. 2. No pelvic mass is seen. 3. Nabothian cyst in cervix. Electronically Signed: Yogesh Diego MD at 15:33 EDT ,
== END | disposition home or self-care (01) ==
PROVIDERS: PCP Physician Assistant; Referring Provider Nurse Practitioner Women's Health; Visit Provider Nurse Practitioner Women's Health
DX: N92.1 Excessive and frequent menstruation with irregular cycle (principal)
CPT/HCPCS: 76830; 76856

== ENCOUNTER → 2024-03-31 | Outpatient (CLI) | payer SELFPAY ==
--- NOTE | 2024-03-31 12:17 | BI_ITS ---
PROCEDURE: SCRN MAMM (CAD)W/DELMI BILAT REASON FOR EXAM: F, Age 48 y/o, mother with breast cancer. TECHNIQUE: Bilateral screening digital breast tomosynthesis with 2D and 3D images. Computer aided detection. COMPARISON: Prior exam(s) dating back to October 23, 2021.. FINDINGS: The breasts are heterogeneously dense which may obscure small masses. Stable benign-appearing bilateral axillary lymph nodes. No suspicious masses, areas of developing architectural distortion, or suspicious calcifications. BI/SCRN MAMM (CAD)W/DELMI BILAT IMPRESSION: BI-RADS 2: BENIGN. RECOMMEND ANNUAL MAMMOGRAPHIC SCREENING. Follow-up code: Routine Follow-up The patient will be notified of the results by letter. Reading Location: [place] [id number]
== END | disposition home or self-care (01) ==
PROVIDERS: PCP Physician Assistant; Referring Provider Physician Assistant; Visit Provider Physician Assistant
DX: Z12.31 Encounter for screening mammogram for malignant neoplasm of breast (principal)
CPT/HCPCS: 77063; 77067